=== PATIENT | female | born 1955 | race African-American/Black ===

== ENCOUNTER 2020-06-03 22:26 | Emergency (ER) | payer OTHER ==
[~2020-06-03] VITALS: Ht 157.5 cm; Wt 63.5 kg
--- NOTE | 2020-06-03 22:30 | NUR ---
ED Nurse Note: Patient brought by ambulance RA [id number] into the ED from [facility] due to seizure. Per EMS pt was found unconscious with dilated pupils. Patient is uncooperative and refused to answer all questions. ERMD assessed pt and denies any symptoms. Pt is AAOX3 and alert.
--- NOTE | 2020-06-03 22:35 | Emergency Room Report ---
History of Present Illness General Chief Complaint: Seizure Source: Patient Present Illness HPI Disclaimer: Please note that this report is being documented using [employer] technology. This can lead to erroneous entry secondary to incorrect interpretation by the dictating instrument. HPI: 64-year-old female with reported history of substance abuse presents by EMS for evaluation of altered mentation. Reported history of seizure disorder as well. Patient is combative and not providing any history. Drug paraphernalia found on person by EMS. She is able to tell me her name, current month and current city. Refusing to provide any medical information. Per EMS, the patient was found unconscious by bystanders. Unable to tell whether or not there was convulsive behavior. She awoke on route by EMS and they noted agitation and dilated pupils. They found a glass pipe on the patient. PMH: Unable to obtain from patient PSH: Unable to obtain from patient Allergies: Unable to obtain from patient Social Hx: Unable to obtain from patient Allergies: Coded Allergies: No Known Allergies (Unverified , 06/03/20) COVID-19 Screening Contact w/high risk pt: No Experienced COVID-19 symptoms?: No COVID-19 Testing performed DRIER TAKE OFF TENDER: No Patient History Last Menstrual Period: UNK Now: No Nursing Documentation-PMH Past Medical History: No Stated History Review of Systems All Other Systems: negative except mentioned in HPI Physical Exam Vital Signs Date Time Temp Pulse Resp B/P (MAP) Pulse Ox O2 Delivery O2 Flow Rate FiO2 06/03/20 22:22 98.4 88 20 135/91 (106) 97 Room Air General: Awake and alert, combative HEENT: NC/AT. EOMI. pupils approximately 4 mm bilaterally. No signs of external trauma. Cardiovascular: RRR. S1 and S2 normal. No murmur appreciated Resp: Normal work of breathing. No cough, wheezing or crackles appreciated Abdomen: Abdomen is soft, nondistended. Nontender Skin: Intact. No abrasions, laceration or rash over the exposed skin MSK: Normal tone and bulk. Moving all extremities. No obvious deformity. Neuro: Awake and alert. Mentating appropriately. Medical Decision Making Diagnostic Impression: Primary Impression: Eloped from emergency department ER Course 64-year-old female brought in for altered level of consciousness. Unclear whether or not seizure-like activity occurred. Had ordered labs to evaluate for metabolic abnormalities, electrolyte abnormalities and toxicologic factors. While I was out of the emergency department the patient absconded Last Vital Signs Date Time Temp Pulse Resp B/P (MAP) Pulse Ox O2 Delivery O2 Flow Rate FiO2 06/03/20 22:22 98.4 88 20 135/91 (106) 97 Room Air Disposition: ELOPED Condition: Unknown Moshe Navas MD Jun 03, 2020 22:35
--- NOTE | 2020-06-03 22:40 | NUR ---
ED Nurse Note: Security called for assistance as pt is verbally abusive and combative. Patient was laying on the floor and refused to stand up. Pt escorted to bed to rest
[2020-06-03] MEDS ORDERED: LORazepam Inj 2mg/ml 1ml IM ONE (23:00)
--- NOTE | 2020-06-03 23:04 | NUR ---
ED Nurse Note: Pt is resistive to care and refused diagnostics and blood work. ERMD aware and notified
--- NOTE | 2020-06-03 23:11 | NUR ---
ELOPEMENT: Pt got out of the bed and busted out to the ER door. All belongings taken. Pt ID band removed.
[2020-06-03 23:13] VITALS: BP 135/91
== END 2020-06-03 23:05 | disposition left against medical advice (07) ==
LOC: EDBD 22:26 → EMR 22:57
DX: G40.909 Epilepsy, unspecified, not intractable, without status epilepticus (principal); Z53.29 Procedure and treatment not carried out because of patient's decision for other reasons
CPT/HCPCS: 99281